=== PATIENT | male | born 1970 | race Caucasian/White ===

== ENCOUNTER 2016-10-14 17:30 | Emergency (ER) | payer OTHER ==
[2016-10-14 17:54] LABS: BASOPHIL 0.3 % (0-2); EOSINOPHIL 1.2 % (0-5); HCT 41.6 % (42.0-52.0); HGB 14.8 g/dl (13.2-18.0); LYMPHOCYTE 15.2 % (15-48); MCH 30.7 pg (25.0-31.0); MCHC 35.6 g/dL (32.0-36.0); MCV 86.3 fL (78.0-100.0); MONOCYTE 5.8 % (0-12); MPV 11.1 fL (6.0-9.5); NEUTROPHIL 77.5 % (41-80); PLT 228 K/uL (150-400); RBC 4.82 M/uL (4.70-6.00); RDW 13.9 % (11.5-14.0); WBC 9.7 K/uL (4.0-10.5)
[2016-10-14 18:05] LABS: INR 1.1 (0.9-1.2); PROTHROMBIN TIME 13.8 SECONDS (11.7-14.0)
[2016-10-14 18:14] LABS: ALBUMIN 4.4 g/dL (3.5-5.0); BILIRUBIN - TOTAL 0.6 mg/dL (0.1-1.0); GLOBULIN (CALCULATION) 2.5 g/dL (2.2-4.2); MAGNESIUM 1.91 mg/dL (1.40-2.10); TOTAL PROTEIN 6.9 g/dL (6.4-8.3)
[2016-10-14 18:16] LABS: CKMB 2.24 ng/mL (0.97-4.94); MYOGLOBIN 216 ng/mL (26-65); PRO-BNP 89 pg/mL (0-125); TROPONIN T < 0.010 ng/mL
[2016-10-14 20:12] LABS: BILIRUBIN NEGATIVE (NEGATIVE); BLOOD TRACE-INTACT Ery/uL (NEGATIVE); CLARITY CLEAR (CLEAR); COLOR YELLOW (YELLOW); GLUCOSE (U) 1+ mg/dL (NORMAL); KETONE (U) NEGATIVE (NEGATIVE); LEUKOCYTES NEGATIVE Leu/uL (NEGATIVE); NITRITE NEGATIVE (NEGATIVE); PROTEIN NEGATIVE (NEGATIVE); SPECIFIC GRAVITY 1.015 (1.001-1.030); UROBILINOGEN 0.2 mg/dL (0.2-1.0)
== END 2016-10-14 22:11 | disposition home or self-care (01) ==
LOC: FER 17:30
PROVIDERS: Emergency Medicine
DX: S22.078A Other fracture of T9-T10 vertebra, initial encounter for closed fracture (principal); S20.312A Abrasion of left front wall of thorax, initial encounter; R10.814 Left lower quadrant abdominal tenderness; S06.9X1A Unspecified intracranial injury with loss of consciousness of 30 minutes or less, initial encounter; F17.210 Nicotine dependence, cigarettes, uncomplicated; V89.2XXA Person injured in unspecified motor-vehicle accident, traffic, initial encounter; Y92.410 Unspecified street and highway as the place of occurrence of the external cause
CPT/HCPCS: 36415; 71010; 72072; 72128; 72170; 80053; 81001; 82550; 82553; 83735; 83874; 83880; 84484; 85025; 85610; 85730; 93005; J1885; J2270